=== PATIENT | female | born 2000 | race Hispanic/Latino ===

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

== ENCOUNTER 2019-01-10 19:39 | Emergency (ER) | payer SELFPAY ==
[2019-01-10] MEDS ORDERED: Metoclopramide HCl 10 MG TAB ONE (20:56)
== END 2019-01-10 22:51 | disposition home or self-care (01) ==
LOC: ERS 19:39
DX: O21.9 Vomiting of pregnancy, unspecified (principal); Z3A.01 Less than 8 weeks gestation of pregnancy
CPT/HCPCS: 99283; J8597

== ENCOUNTER 2019-08-12 07:47 | Inpatient (IN) | payer MEDICAID, SELFPAY ==
[2019-08-12] MEDS ORDERED: Promethazine HCl 25 MG/ML VIAL IM PRN ×2 (08:45→13:30)
[2019-08-12] MEDS ORDERED: hydrALAZINE 20 MG/ML VIAL SLOW IVP PRN (08:45)
[2019-08-12] MEDS ORDERED: Acetaminophen 500 MG TAB PO PRN (08:45)
[2019-08-12] MEDS ORDERED: Lidocaine 1% (PF) 30 ML VIAL SC PRN (08:45)
[2019-08-12] MEDS ORDERED: Butorphanol Tartrate 1 MG/ML VIAL SLOW IVP PRN (08:45)
[2019-08-12] MEDS ORDERED: Ondansetron PF 4 MG/2 ML Vial IVP PRN ×2 (08:45→13:30)
[2019-08-12] MEDS ORDERED: NS / Oxytocin 40 units/1000ml 1,000 ML IV PRN (08:45)
--- NOTE | 2019-08-12 09:08 | PDOC.FPRHP ---
- History of Present Illness Chief Complaint: Contractions History of Present Illness: Pt is a 19 yo @ 39.6 wks (FRANDY 08/13) by 11 wk US with anemia of and GERD who presents for contractions. Contractions started @ 3:25 am this morning (08/12). The contractions are every 3-4 minutes. She has no bleeding or loss of fluid. She endorses good movement and has clear vaginal discharge. She says she is only taking PNV. Pre- labs were unremarkable. * Negative Labs: Hep B, GBS, RPR, HIV, Chlamydia, Gonorrhea * Blood Type: A+, Antibody: Negative * Rubella Immune * 3H GTT: 71, 128,138,119 (Negative for GDM) - Allergies/Adverse Reactions Allergies Allergy/AdvReac Type Severity Reaction Status Date / Time Penicillins Allergy Verified 08/12/19 09:07 - Home Medications Medication Instructions Recorded Confirmed Type [id number]/Iron Fum/Folic/Docusate 1 tablet PO DAILY 08/12/19 08/12/19 History [ 19] - History PMHx: Anemia of , GERD PSHx: None FHx: PGM- DM, No jaundice or asthma in family. Social: No alcohol, drugs, or tobacco use. Lives with mom, dad, and 4 siblings. FOB is boyfriend. - Review of Systems General: denies: fever/chills Eyes: denies: vision changes ENT: denies: nasal congestion, rhinorrhea Respiratory: reports: shortness of breath. denies: cough, congestion Cardiovascular: denies: chest pain, edema Gastrointestinal: denies: nausea, vomiting, diarrhea, constipation Genitourinary: denies: dysuria Skin: denies: rashes Musculoskeletal: denies: pain, tenderness Neurological: denies: numbness, weakness - Vital signs BP: 158/95 HR: 79 Pox: 99% on RA Wt: 67.132 kg FMR H&P: A/P - Problem List (1) Term Current Visit: Yes Status: Acute Code(s): Z34.90 - ENCNTR FOR SUPRVSN OF NORMAL , UNSP, UNSP TRIMESTER - Plan Pt is a 19 yo @ 39.6 wks (FRANDY 08/13) by 11 wk US with anemia of and GERD who presents for contractions. 1. Term * Check @ 8:20- 80/-1 * No induction needed at this time * Will check serial BP, due to elevated BP * Will get CMP * Given Tylenol & Stadol prn for pain Diet: NPO with Ice Chips Activity: Ad Sydnie PCP: JG Torres (Laborist) Dispo: Admit to L&D for delivery. FMR H&P: Upper Level - Plan Date/Time: 08/12/19 0905 I, [], have evaluated this patient and agree with findings/plan as outlined by automotive internet sales consultant resident. Pertinent changes/additions are listed here.
[2019-08-12 09:09] VITALS: BMI 27.9
[2019-08-12 09:16] LABS: Hemoglobin 11.8 g/dL (12.0-16.0); Mean Corpuscular HGB CONC 34.4 g/dL (32.0-36.0); Mean Corpuscular Hemoglobin 29.5 pg (25.0-35.0); Mean Corpuscular Volume 85.8 fL (78.0-98.0); Mean Platelet Volume 8.3 fL (7.4-10.4); Platelet Count 230 thou/uL (130-400); RBC Distribution Width 11.9 % (11.5-14.5); Red Blood Cell (RBC) Count 3.99 mill/uL (4.00-5.20)
[2019-08-12] MEDS ORDERED: Butorphanol Tartrate 1 MG/ML VIAL ONE (09:16)
[2019-08-12] MEDS ORDERED: Calcium Gluc 4.6 MEQ/10 ML (100 MG/ML) SLOW IVP PRN (09:27)
[2019-08-12] MEDS: Lactated Ringer's 1,000 ML IV SCH ×2 (09:30→12:50)
[2019-08-12] MEDS ORDERED: Magnesium Sulfate 20 GM/WATER 500 ML BAG IVPB SCH (09:30)
--- NOTE | 2019-08-12 09:42 | HP ---
The patient was evaluated at bedside by me from 9:10 to 9:15. LOCATION: Labor and delivery in [facility] 11. REASON FOR ADMISSION: Active labor at 6 cm. HISTORY OF PRESENT ILLNESS: In brief, this is a 19-year-old G1, P0, who was noted to be 6 cm on initial exam around 8:20 this morning. She is at 39 weeks and 6 days by an 11 week ultrasound. She is a patient of the residents and the residents have done their first assessment. The patient denies any headaches, visual changes, or right upper quadrant discomfort. She has good movement. REVIEW OF SYSTEMS: Complete review of systems was completed and is otherwise negative unless specified in the HPI. PAST MEDICAL HISTORY: Negative. ALLERGIES: NONE. SOCIAL HISTORY: Negative for alcohol, tobacco, or drug use. PAST SURGICAL HISTORY: None. OB HISTORY: She is a primigravida and important to note that she did have a 3- hour glucose tolerance test this and the results were negative. PHYSICAL EXAMINATION: VITAL SIGNS: Show a blood pressure of 158/95, but this was taken during spontaneous contraction. Her pulse is 79 and her O2 saturation is 99%. GENERAL: Clinically, she is in no acute distress, but she is having some contraction discomfort. ABDOMEN: Soft and nontender and size of the uterus is consistent with date. : Again, initial cervical exam shows 6 cm dilation without gross evidence of bleeding. For full cervical exam and details, please turn to the resident H and P. On monitor, I have evaluated the strip and find the heart tracings to be category 1. Contractions are irregular on tocodynamometer with an unclear contraction pattern at this time. ASSESSMENT: This is 19-year-old G1, P0, at 39 weeks and 6 days, GBS negative, in active labor, who was just been admitted. PLAN: 1. Repeat blood pressures and monitor closely. I have recommended a complete metabolic profile to rule out any lab abnormalities. 2. If blood pressures remain over 140 over 90s, consider magnesium sulfate. 3. Pain control. 4. Anticipate spontaneous progress of labor. 5. Pitocin if necessary. 6. Anticipate vaginal . Addendum: Patients repeat BPs still 140/90 20-30 minutes later, Mag ordered. Job ID: [id number] [facility]
[2019-08-12 09:54] LABS: Syphilis Antibody Nonreactive (Nonreactive); Syphilis Antibody Index 0.03 S/CO (<1.00 Non-Reactive)
[2019-08-12] MEDS ORDERED: Magnesium Sulfate 20 gm/500 ml 4 GM/100 ML BAG IVPB SCH (10:00)
[2019-08-12 10:01] LABS: HBSAg Index 0.14 S/CO (0-0.99); Hep B Surf Ag Non-Reactive S/CO (NonReactive)
[2019-08-12] MEDS: Magnesium Sulfate 20 gm/500 ml 20 GM/500 ML BAG IVPB SCH ×2 (10:43→21:14)
[2019-08-12 11:00] LABS: ALT (SGPT) 7 U/L (8-55); AST (SGOT) 17 U/L (5-34); Albumin 3.6 g/dL (3.5-5.0); Alkaline Phosphatase 230 U/L (40-100); Anion Gap 13 mmol/L (10-20); BUN (Urea Nitrogen) 8 mg/dL (7.0-18.7); Bilirubin, Total 0.5 mg/dL (0.2-1.2); Calc. Creatinine Clearance 173 mL/min (70-130); Calcium 9.3 mg/dL (7.8-10.44); Carbon Dioxide 20 mmol/L (22-29); Chloride 109 mmol/L (98-107); Estimated GFR-MDRD Greater than 90; Globulin 3.1 g/dL (2.4-3.5); Glucose 84 mg/dL (70-105); Potassium 3.8 mmol/L (3.5-5.1); Protein, Total 6.7 g/dL (6.0-8.3); Sodium 138 mmol/L (136-145)
[2019-08-12] MEDS ORDERED: Fentanyl 4 mcg/Bup 0.1% Cadd 100 ML ONE (12:05)
[2019-08-12] MEDS ORDERED: Lidocaine 1.5%/Epinephrine 1:200,000 5 ML AMPUL IJ ONE (12:41)
--- NOTE | 2019-08-12 12:44 | PDOC.LDPN ---
Labor & Delivery Progress Note - Subjective Subjective: painful contractions - Objective Vital signs reviewed and normal: yes General: breathing through contractions Uterine fundus: non tender Dilation: 8.5 Effacement: 100% Station: -2 FHT: category 1 (baseline 120, accels present, no decel ), absent or minimal variables [place] contractions every: 2-3 - Assessment (1) Pre-eclampsia affecting childbirth Code(s): O14.94 - UNSPECIFIED PRE-ECLAMPSIA, COMPLICATING CHILDBIRTH Current Visit: Yes Status: Acute (2) Term Code(s): Z34.90 - ENCNTR FOR SUPRVSN OF NORMAL , UNSP, UNSP TRIMESTER Current Visit: Yes Status: Acute Plan: continue plan of care -: active labor - progressing as expected, continue to monitor and check as needed - epidural to be placed for pain control elevated blood pressure - CBC, CMP wnl concern for pre-E - mag running, UOP adequate, pressures under severe range
[2019-08-12] MEDS ORDERED: Lactated Ringer's 500 ML IV PRN (13:30)
[2019-08-12] MEDS ORDERED: Acetaminophen 325 MG TAB PO PRN (13:30)
[2019-08-12] MEDS ORDERED: Fentanyl 4 mcg/Bupivacaine 0.1% Cassette 100 ML EPIDURAL SCH (13:30)
[2019-08-12] MEDS ORDERED: diphenhydrAMINE 50 MG/ML VIAL IVP PRN (13:30)
[2019-08-12] MEDS ORDERED: ePHEDrine/0.9% NaCl/PF SYRINGE 50 mg/10 ml SLOW IVP PRN (13:30)
[2019-08-12] MEDS ORDERED: Communication Order-Pharmacy FS SCH (13:30)
[2019-08-12] MEDS ORDERED: Naloxone HCl 0.4 mg/ml Vial IVP PRN ×2 (13:30)
--- NOTE | 2019-08-12 14:42 | PDOC.LDPN ---
Labor & Delivery Progress Note - Subjective Subjective: comfortable, vaginal pressure - Objective Vital signs reviewed and normal: yes (no severe range pressures) General: NAD, breathing through contractions Uterine fundus: non tender Effacement: 100% Station: -1 FHT: category 1 (baseline 130, accels, no decels ), absent or minimal variables [place] contractions every: 2 - Assessment (1) Pre-eclampsia affecting childbirth Code(s): O14.94 - UNSPECIFIED PRE-ECLAMPSIA, COMPLICATING CHILDBIRTH Current Visit: Yes Status: Acute (2) Term Code(s): Z34.90 - ENCNTR FOR SUPRVSN OF NORMAL , UNSP, UNSP TRIMESTER Current Visit: Yes Status: Acute Plan: continue plan of care -: active labor - SROM/complete @ 1400 - progressing as expected, allow labor down - epidural to be placed for pain control elevated blood pressure - CBC, CMP wnl concern for pre-E - mag running, UOP adequate, pressures under severe range
--- NOTE | 2019-08-12 16:39 | PDOC.EVN ---
Event Note - Event Note Event Note: OBGYN Attending Delivery Note Present for controlled of vigorous male. Baby born at 1617 with resident at perineum. Placenta delivered spont and intact at 1621...[place] EBL about 200ml Guidry placed after placenta to continue MAG No complications noted All counts correct Please see full delivery note
[2019-08-12] MEDS ORDERED: Methylergonovine 0.2 MG/ML VIAL IM PRN (16:45)
[2019-08-12] MEDS ORDERED: Bisacodyl 10 MG SUPP PR PRN (16:45)
[2019-08-12] MEDS ORDERED: Lanolin Ointment 7 GM TUBE TOP PRN (16:45)
[2019-08-12] MEDS ORDERED: Acetaminophen/Codeine 30-300mg Tablet PO PRN (16:45)
[2019-08-12] MEDS ORDERED: Benzocaine-Menthol 82.5 ML CAN TOP PRN (16:45)
[2019-08-12] MEDS ORDERED: NS / Oxytocin 40 units/1000ml 1,000 ML IV SCH (16:45)
[2019-08-12] MEDS ORDERED: Zolpidem Tartrate 5 MG TAB PO PRN (16:45)
[2019-08-12] MEDS ORDERED: Methylergonovine 0.2 MG TAB PO PRN (16:45)
[2019-08-12] MEDS ORDERED: Misoprostol 200 MCG TAB VAG PRN (16:45)
[2019-08-12] MEDS ORDERED: Milk Of Magnesia 30 ML UDCUP PO PRN (16:45)
--- NOTE | 2019-08-12 17:01 | PDOC.OPDEL ---
OB Operative/Delivery Note Delivery Dr/Surgeon: Dr. Chelly Torres MD Assist: None Pre-Delivery Diagnosis: active labor Procedure/Post Delivery Dx: spontaneous vaginal delivery Weeks gestation: 39 (39.6) Anesthesia: epidural - Additional Findings/Plan Placenta delivered: spontaneous Repaired Obstetrical Laceration: none Estimated blood loss: 200mL Compilations/Other Findings: Delivering Physician: Dr. Chelly Torres MD Attending: Dr. Jonathan Rouse MD Procedure: Spontaneous Vaginal Delivery Anesthesia: epidural EBL: 200 ml Pre-op Diagnosis: 1. Term intrauterine in labor 2. Anemia in 3. Elevated blood pressure readings w/o diagnosis of gestation HTN or Pre- eclampsia Post-op Diagnosis: 1. Term intrauterine , delivered 2. Anemia in 3. Elevated blood pressure readings w/o diagnosis of gestation HTN or Pre- eclampsia Indications: A 19y/o female presents in active labor. Delivery Note: This is 19yo F @ 39.6 wks who delivered a viable M at 16:17. Following an uneventful antepartum course, a vigorous male was delivered over an intact perineum in the occipitoanterior position. Anterior Shoulder and then remainder of the body delivered. No nuchal cord. Cord clamped after delayed cord clamping and cut and cord blood collected. Placenta delivered intact in the Carpio presentation with a 3 vessel cord noted. Fundal massage was performed and the fundus was firm. The cervix and vagina were inspected and found to be free of lacerations. Infant went to nursery in good condition for routine care following skin to skin. Apgars were 9/9 at 1 & 5 minutes, respectively. Patient tolerated delivery well and remained on L&D for continued magnesium therapy for elevated blood pressures prior to delivery.
[2019-08-12] MEDS ORDERED: Lidocaine 2% MPF 10 ML AMP (For Epidural Use) ONE (18:00)
--- NOTE | 2019-08-12 19:10 | PDOC.BPN ---
- Brief Progress Note Mag Check S: Doing well, no concerns or complaints. Denies any SOB, CP, confusion, dizziness/lightheadedness. Pain well-controlled. O: Vitals: BP 130-140/60s, no severe range pressures. UOP 50-100cc/hr. General: Well-appearing, lying comfortably in bed, NAD Cards: RRR no murmur Pulm: CTAB, no increased WOB Neuro: A/O x3, upper Ext reflexes 2+ BL Ext: No significant LE edema A/P: 19yo now P1 @39.6wks by 11wk jonas who delivered @ 1614 on 08/12/2019 with complicated by PreE and anemia of . #PreE - On Mg with q4hr mag checks - Normal reflexes, good UOP, no severe range pressures, exam WNL - Will cont to monitor, next mag check @ 2300
[2019-08-12] MEDS: Ibuprofen 800 MG TAB PO SCH (20:21)
[2019-08-12] MEDS: Docusate Calcium (SURFAK) 240 MG CAP PO SCH (21:14)
[2019-08-12] MEDS: Ferrous Sulfate 325 MG TAB PO SCH (21:50)
--- NOTE | 2019-08-12 22:57 | PDOC.BPN ---
- Brief Progress Note Mag Check S: Doing well, no concerns or complaints. Denies any SOB, CP, confusion, dizziness/lightheadedness. Pain well-controlled. Does endorse some mild diaphoresis. O: Vitals: BP 140/70s with most recent 120/90, no severe range pressures. UOP 50cc/hr. General: Well-appearing, lying comfortably in bed, NAD Cards: RRR no murmur Pulm: CTAB, no increased WOB Neuro: A/O x3, upper Ext reflexes 2+ BL Ext: No significant LE edema Guidry in place A/P: 19yo now P1 @39.6wks by 11wk jonas who delivered @ 1614 on 08/12/2019 with complicated by PreE and anemia of . #PreE - On Mg with q4hr mag checks - Normal reflexes, good UOP, no severe range pressures, exam WNL - Readjusted BP cuff as was sliding down arm. - Will cont to monitor, next mag check @ 0300
[2019-08-13] MEDS: Lactated Ringer's 1,000 ML IV SCH (00:01)
--- NOTE | 2019-08-13 03:38 | PDOC.BPN ---
- Brief Progress Note Mag Check S: Pt is doing very well, no concerns or complaints. Denies any SOB, CP, confusion, dizziness/lightheadedness. Pain well-controlled. Diaphoresis resolved. O: Vitals: BP 110s-120s/60s-80s. UOP ~50cc/hr. General: Well-appearing, lying comfortably in bed, NAD Cards: RRR no murmur Pulm: CTAB, no increased WOB Neuro: A/O x3, upper Ext reflexes 2+ BL Ext: No significant LE edema : Guidry in place - clear straw-colored urine A/P: 19yo now P1 @39.6wks by 11wk jonas who delivered @ 1614 on 08/12/2019 with complicated by PreE and anemia of . #PreE - On Mg with q4hr mag checks - Normal reflexes, good UOP, no severe range pressures, exam WNL - BP much improved over last 4 hours. - Mg lv checked and returned 5.3 - Will cont to monitor, next mag check @ 6478
--- NOTE | 2019-08-13 03:55 | PDOC.OBPPN ---
FMR OB PN: Subj - Interval History Hospital Day: 2 Day: 1 Chief Complaint: None Indentification: pp day #1 s/p Interval History: Still receiving Mg for elevated BPs FMR OB PN: Obj - Maternal Vital signs: BP: 127/70 HR: 77 RR: 14 Tmax: 99.4F Pox: 100% on RA Wt: 67 kg - Urine output I&O: 08/11/19 08/12/19 08/13/19 06:59 06:59 06:59 Output Total 280 Balance -280 - Lochia Lochia: scant bloody discharge on pad - Pain Management Pain scale: 0 Intervention: oral medication FMR OB PN: Exam - Physical Exam General: NAD, awake, alert and oriented HEENT: normocephalic and atraumatic, grossly normal vision, grossly normal hearing Neck: supple, FROM Heart: RRR, normal S1/S2, no murmurs/rubs/gallops General: CTAB, no respiratory distress, good air movement, no rales/rhonchi, no wheezing, no retractions Abdomen: soft, fundus(cm) (firm just below umbilicus), non-tender Musculoskeletal: pulses present, FROM in all four extremities Neurological: cranial nerves II through XII intact, sensation to pain,touch and proprioception grossly normal, no focal deficit Skin: no rash : appropriately tender Psychiatric: intact recent and remote memory, good judgement and insight, normal mood and affect - Pelvic Exam : no edema, normal lochia FMR OB PN: Data - Labs Lab results: Laboratory Results - last 24 hr 08/12/19 08/12/19 08/12/19 08:50 08:50 08:50 WBC RBC Hgb Hct MCV MCH MCHC RDW Plt Count MPV Sodium Potassium Chloride Carbon Dioxide Anion Gap BUN Creatinine Estimated GFR (MDRD) Glucose Calcium Magnesium Total Bilirubin AST ALT Alkaline Phosphatase Serum Total Protein Albumin Globulin Albumin/Globulin Ratio Syphilis IgG/IgM Ab Nonreactive Hep Bs Antigen Non-Reactive Blood Type A POSITIVE Antibody Screen NEGATIVE 08/12/19 08/12/19 08/12/19 08:50 10:23 10:23 WBC 15.0 H RBC 3.99 L Hgb 11.8 L Hct 34.2 L MCV 85.8 MCH 29.5 MCHC 34.4 RDW 11.9 Plt Count 230 MPV 8.3 Sodium 138 Potassium 3.8 Chloride 109 H Carbon Dioxide 20 L Anion Gap 13 BUN 8 Creatinine 0.55 L Estimated GFR (MDRD) Greater than 90 Glucose 84 Calcium 9.3 Magnesium Total Bilirubin 0.5 AST 17 ALT 7 L Alkaline Phosphatase 230 H Serum Total Protein 6.7 Albumin 3.6 Globulin 3.1 Albumin/Globulin Ratio 1.2 Syphilis IgG/IgM Ab Hep Bs Antigen Blood Type A POSITIVE Antibody Screen 08/13/19 00:20 WBC RBC Hgb Hct MCV MCH MCHC RDW Plt Count MPV Sodium Potassium Chloride Carbon Dioxide Anion Gap BUN Creatinine Estimated GFR (MDRD) Glucose Calcium Magnesium 5.3 H Total Bilirubin AST ALT Alkaline Phosphatase Serum Total Protein Albumin Globulin Albumin/Globulin Ratio Syphilis IgG/IgM Ab Hep Bs Antigen Blood Type Antibody Screen FMR OB PN: A/P - Problem List (1) Status post normal vaginal delivery Current Visit: Yes Status: Acute Code(s): [id number] - (2) Vaginal delivery Current Visit: Yes Status: Acute Code(s): O80 - ENCOUNTER FOR FULL-TERM UNCOMPLICATED DELIVERY (3) Anemia affecting Current Visit: Yes Status: Acute Code(s): O99.019 - ANEMIA COMPLICATING , UNSPECIFIED TRIMESTER (4) Blood pressure elevated without history of HTN Current Visit: Yes Status: Acute Code(s): R03.0 - ELEVATED BLOOD-PRESSURE READING, W/O DIAGNOSIS OF HTN Disposition: 19YO PP day #1 s/p . PP day #1 s/p : - Reports pain is well-controlled on PO meds. States bleeding is similar to a period. Tolerating PO. No passing gas or BM yet. Not yet ambulating or voiding since godfrey is in & still on Mg. Continue routine PP care. Elevated BP w/o diagnosis of pre-eclampsia or HTN in or outside of : - IV Mg started for seizure PPX yesterday @ ~1500 due to persistently elevated BPs. Highest BP since Mg initiation 144/80 @ ~22:00. UO 140-240mL/hr since last Mg check. - Continue Q4H Mg checks until Mg has been given for ~24 hours and pressures remain well-controlled. - Continue to monitor pressures closely. Anemia in : - Aware, admission H/H 11.8/34.2. Continue PNVs & Iron PP. Dispo: Continue routine PP care with likely d/c home tomorrow morning pending course remains uncomplicated. Discussion: Date/Time: 08/13/19 3094 This H&P was discussed with Dr. Rouse who agrees with the above documentation and plan.
--- NOTE | 2019-08-13 06:29 | PDOC.EVN ---
Event Note - Event Note Event Note: OBGYN Attestation PPD1 MagSo4 Patient PPD1 still on JanuarySo4 but no evidence severe features. Will be 24 hrs on january this pm around 1600. Good UOP. Doing well. Patient seen by me.
--- NOTE | 2019-08-13 07:35 | PDOC.OBPPN ---
FMR OB PN: Subj - Interval History Hospital Day: 2 Day: 1 Chief Complaint: No complaints Interval History: 19 yo F PPD#1 after FMR OB PN: Obj - Maternal Vital signs: BP: 108/62 HR: 83 RR: 16 Tmax: 98 Wt: 67 kg - Urine output I&O: 08/12/19 08/13/19 08/14/19 06:59 06:59 06:59 Output Total 280 Balance -280 - Lochia Lochia: Normal - Pain Management Pain scale: 2 FMR OB PN: Exam - Physical Exam General: NAD, awake, alert and oriented HEENT: normocephalic and atraumatic, PERRLA, EOMI Neck: supple, trachea midline Chest: non-tender to palpation Heart: RRR, normal S1/S2 General: CTAB Abdomen: soft, non-tender, bowel sound present Musculoskeletal: pulses present Neurological: DTR +2 Skin: no rash Lymphatic: no unusual bruising or bleeding FMR OB PN: Data - Labs Lab results: Laboratory Results - last 24 hr 08/12/19 08/12/19 08/12/19 08:50 08:50 08:50 WBC RBC Hgb Hct MCV MCH MCHC RDW Plt Count MPV Sodium Potassium Chloride Carbon Dioxide Anion Gap BUN Creatinine Estimated GFR (MDRD) Glucose Calcium Magnesium Total Bilirubin AST ALT Alkaline Phosphatase Serum Total Protein Albumin Globulin Albumin/Globulin Ratio Syphilis IgG/IgM Ab Nonreactive Hep Bs Antigen Non-Reactive Blood Type A POSITIVE Antibody Screen NEGATIVE 08/12/19 08/12/19 08/12/19 08:50 10:23 10:23 WBC 15.0 H RBC 3.99 L Hgb 11.8 L Hct 34.2 L MCV 85.8 MCH 29.5 MCHC 34.4 RDW 11.9 Plt Count 230 MPV 8.3 Sodium 138 Potassium 3.8 Chloride 109 H Carbon Dioxide 20 L Anion Gap 13 BUN 8 Creatinine 0.55 L Estimated GFR (MDRD) Greater than 90 Glucose 84 Calcium 9.3 Magnesium Total Bilirubin 0.5 AST 17 ALT 7 L Alkaline Phosphatase 230 H Serum Total Protein 6.7 Albumin 3.6 Globulin 3.1 Albumin/Globulin Ratio 1.2 Syphilis IgG/IgM Ab Hep Bs Antigen Blood Type A POSITIVE Antibody Screen 08/13/19 00:20 WBC RBC Hgb Hct MCV MCH MCHC RDW Plt Count MPV Sodium Potassium Chloride Carbon Dioxide Anion Gap BUN Creatinine Estimated GFR (MDRD) Glucose Calcium Magnesium 5.3 H Total Bilirubin AST ALT Alkaline Phosphatase Serum Total Protein Albumin Globulin Albumin/Globulin Ratio Syphilis IgG/IgM Ab Hep Bs Antigen Blood Type Antibody Screen FMR OB PN: A/P - Problem List (1) Term Current Visit: Yes Status: Acute Code(s): Z34.90 - ENCNTR FOR SUPRVSN OF NORMAL , UNSP, UNSP TRIMESTER (2) Pre-eclampsia affecting childbirth Current Visit: Yes Status: Acute Code(s): O14.94 - UNSPECIFIED PRE-ECLAMPSIA , COMPLICATING CHILDBIRTH (3) Status post normal vaginal delivery Current Visit: Yes Status: Acute Code(s): [id number] - Disposition: 19YO PP day #1 s/p . 1. PP day #1 s/p : * Reports pain is well-controlled on PO meds. * Bleeding is similar to a period. * Tolerating PO. * No passing gas or BM yet. * Not yet ambulating or voiding since godfrey is in & still on Mg. * Continue routine PP care. 2. Elevated BP w/o diagnosis of pre-eclampsia or HTN in or outside of : * IV Mg started for seizure PPX yesterday @ ~1500 due to persistently elevated BPs. * Highest BP since Mg initiation 144/80 last night. UO 170 mL in last hour. * Continue Q4H Mg checks until Mg has been given for ~24 hours and pressures remain well-controlled. * Continue to monitor pressures closely. 3. Anemia in : * Aware, admission H/H 11.8.2. Continue PNVs & Iron PP. Dispo: Continue routine PP care with likely d/c home tomorrow morning pending course remains uncomplicated. Will continue Mag until this afternoon. Discussed with Dr. Rouse Discussion: Date/Time: 08/13/19 3910 This H&P was discussed with [] and [] who agree with the above documentation and plan.
[2019-08-13] MEDS: Ferrous Sulfate 325 MG TAB PO SCH ×2 (08:00→19:19)
[2019-08-13] MEDS: Magnesium Sulfate 20 gm/500 ml 20 GM/500 ML BAG IVPB SCH (08:41)
[2019-08-13] MEDS ORDERED: FLU VACC QS2019-20(6MOS UP)/PF 60 MCG/0.5 ML SYRINGE IM ONE (09:00)
[2019-08-13] MEDS: Docusate Calcium (SURFAK) 240 MG CAP PO SCH ×2 (09:00→21:48)
--- NOTE | 2019-08-13 12:53 | PDOC.BPN ---
- Brief Progress Note Mag Check S: Pt is doing very well. She says she has a slight headache. Denies any SOB, CP , confusion, dizziness/lightheadedness. Pain well-controlled. O: Vitals: BP 114/64. UOP ~200cc/hr. General: Well-appearing, lying comfortably in bed, NAD Cards: RRR no murmur Pulm: CTAB, no increased WOB Neuro: A/O x3, upper Ext reflexes 2+ BL Ext: No significant LE edema : Guidry in place - clear straw-colored urine A/P: 19yo now P1 @39.6wks by 11wk jonas who delivered @ 1614 on 08/12/2019 with complicated by PreE and anemia of . 1. PreE * On Mg with q4hr mag checks * Normal reflexes, good UOP, no severe range pressures, exam WNL * BP have been good today * Will cont to monitor, next mag check @ 4 * Mag 24H @ 1500
[2019-08-13] MEDS: Ibuprofen 800 MG TAB PO SCH ×3 (14:03→21:48)
[2019-08-13] MEDS: Prenatal Vitamin 1 TAB PO SCH (14:03)
--- NOTE | 2019-08-14 04:00 | PDOC.OBPPN ---
FMR OB PN: Subj - Interval History Hospital Day: 3 Day: 2 Chief Complaint: none Indentification: pp day #2 s/p Interval History: Mg stopped @ 13:00 on 08/13. 1 elevated BP since of 144/95. FMR OB PN: Obj - Maternal Vital signs: BP: 131/71 HR: 80 RR: 18 Tmax: 98.2F Pox: 97% on RA Wt: 67 kg - Urine output I&O: 08/12/19 08/13/19 08/14/19 06:59 06:59 06:59 Output Total 280 Balance -280 - Lochia Lochia: minimal bleeding per patient - Pain Management Pain scale: 0 Intervention: oral medication FMR OB PN: Exam - Physical Exam General: NAD, awake, alert and oriented HEENT: normocephalic and atraumatic, grossly normal vision, grossly normal hearing Neck: supple, FROM Heart: RRR, normal S1/S2, no murmurs/rubs/gallops, pulses present, no edema General: CTAB, no respiratory distress, good air movement, no rales/rhonchi, no wheezing Abdomen: soft, fundus(cm) (firm & midline just below umbilicus) Musculoskeletal: normal gait and station, FROM in all four extremities Neurological: cranial nerves II through XII intact, sensation to pain,touch and proprioception grossly normal, no focal deficit Psychiatric: intact recent and remote memory, normal mood and affect - Pelvic Exam : no discharge, no edema, normal lochia FMR OB PN: A/P - Problem List (1) Status post normal vaginal delivery Current Visit: Yes Status: Acute Code(s): FEX5253 - (2) Vaginal delivery Current Visit: Yes Status: Acute Code(s): O80 - ENCOUNTER FOR FULL-TERM UNCOMPLICATED DELIVERY (3) Anemia affecting Current Visit: Yes Status: Acute Code(s): O99.019 - ANEMIA COMPLICATING , UNSPECIFIED TRIMESTER (4) Blood pressure elevated without history of HTN Current Visit: Yes Status: Acute Code(s): R03.0 - ELEVATED BLOOD-PRESSURE READING, W/O DIAGNOSIS OF HTN Disposition: 19YO PP day #2 s/p . 1. PP day #2 s/p : * Reports pain is well-controlled on PO meds. * Bleeding is less than a period. * Tolerating PO. Passing gas but no BM yet. Voiding normally. * is improving. * Continue routine PP care. 2. Elevated BP w/o diagnosis of pre-eclampsia or HTN in or outside of : * IV Mg started for seizure PPX on 08/12 @ ~1500 due to persistently elevated BPs. Stopped yesterday @ ~13:00. * Only 1 elevated BP since @ ~20:23 @ 144/95. Patient remains asymptomatic. * Continue to monitor pressures closely. 3. Anemia in : * Aware, admission H/H .2. Continue PNVs & Iron PP. Dispo: Possible d/c home later today pending BPs remain stable and 's course remains uneventful. Discussion: Date/Time: 08/14/19 0358 This H&P was discussed with Dr. Grider who agrees with the above documentation and plan.
[2019-08-14] MEDS: Ibuprofen 800 MG TAB PO SCH ×2 (06:12→14:32)
[2019-08-14] MEDS ORDERED: [UNRECOGNIZED DRUG - OTHER] PO SCH (09:00)
[2019-08-14] MEDS ORDERED: DOCUSATE PO SCH (09:00)
[2019-08-14] MEDS ORDERED: IRON FUM PO SCH (09:00)
[2019-08-14] MEDS ORDERED: Adacel (T-DAP) 0.5 ML SYRINGE IM ONE (09:00)
[2019-08-14] MEDS ORDERED: FOLIC PO SCH (09:00)
[2019-08-14] MEDS: Ferrous Sulfate 325 MG TAB PO SCH (09:27)
[2019-08-14] MEDS: Docusate Calcium (SURFAK) 240 MG CAP PO SCH (09:27)
[2019-08-14] MEDS: Prenatal Vitamin 1 TAB PO SCH (09:27)
[2019-08-14] MEDS ORDERED: Labetalol 100 MG TAB PO SCH ×2 (12:15→21:00)
[2019-08-14 16:27] VITALS: BP 135/84; TEMP 98.4
== END 2019-08-14 17:45 | disposition home or self-care (01) | DRG 807 ==
LOC: L&D/OP 07:47 → L&D 13:55 → 3SW 08-13 15:26
PROVIDERS: ADMIT Obstetrics & Gynecology; ATTEND Obstetrics & Gynecology
PROC: 10E0XZZ Delivery of Products of Conception, External Approach (ICD-10-PCS; principal; 2019-08-12)
DX: O99.02 Anemia complicating childbirth (principal); Z37.0 Single live birth; Z3A.39 39 weeks gestation of pregnancy; O14.94 Unspecified pre-eclampsia, complicating childbirth; D64.9 Anemia, unspecified
CPT/HCPCS: 36415; 80053; 83735; 85027; 86780; 86850; 86900; 86901; 87340; J0595; J2001; J3475; J3490

== ENCOUNTER 2019-09-24 17:17 | Emergency (ER) | payer MEDICAID, SELFPAY ==
[2019-09-24 19:57] LABS: Bacteria/HPF None Seen HPF (None Seen); Bilirubin Negative (Negative); Blood, Urine Negative (Negative); Clarity Clear (Clear); Glucose, Urine (Dipstick) Normal (Negative); Leukocyte 250 Leu/uL (Negative); Mucous/LPF Rare LPF (<2+); Nitrite Negative (Negative); Protein, Urine (Dipstick) Negative (Neg-Trace); RBC/HPF 0-3 HPF (0-3); Squamous Epithelial 0-3 HPF (0-3); Urobilinogen Normal mg/dL (Less than 2); WBC/HPF 0-3 HPF (0-3)
[2019-09-24 19:58] LABS: #Monocytes 0.6 thou/uL (0.11-0.59); #Neutrophils 6.3 thou/uL (1.40-6.50); %Basophils 0.1 % (0.0-1.0); %Eosinophils 0.4 % (0.0-10.0); %Lymphocytes 22.4 % (28.0-48.0); %Monocytes 7.1 % (0.0-4.0); Hemoglobin 13.2 g/dL (12.0-16.0); Mean Corpuscular HGB CONC 34.5 g/dL (32.0-36.0); Mean Corpuscular Hemoglobin 29.2 pg (25.0-35.0); Mean Corpuscular Volume 84.6 fL (78.0-98.0); Mean Platelet Volume 6.8 fL (7.4-10.4); Platelet Count 279 thou/uL (130-400); RBC Distribution Width 11.5 % (11.5-14.5); Red Blood Cell (RBC) Count 4.52 mill/uL (4.00-5.20); White Blood Cell (WBC) Count 8.9 thou/uL (4.8-10.8)
[2019-09-24 20:21] LABS: ALT (SGPT) 11 U/L (8-55); AST (SGOT) 17 U/L (5-34); Albumin 4.9 g/dL (3.5-5.0); Alkaline Phosphatase 100 U/L (40-100); Anion Gap 16 mmol/L (10-20); BUN (Urea Nitrogen) 9 mg/dL (7.0-18.7); Bilirubin, Total 0.9 mg/dL (0.2-1.2); Calc. Creatinine Clearance 0 mL/min (70-130); Calcium 9.6 mg/dL (7.8-10.44); Carbon Dioxide 23 mmol/L (22-29); Chloride 103 mmol/L (98-107); Estimated GFR-MDRD Greater than 90; Globulin 2.9 g/dL (2.4-3.5); Glucose 84 mg/dL (70-105); Potassium 3.6 mmol/L (3.5-5.1); Protein, Total 7.8 g/dL (6.0-8.3); Sodium 138 mmol/L (136-145); Uric Acid 6.4 mg/dL (2.6-6.0)
== END 2019-09-24 20:47 | disposition home or self-care (01) ==
LOC: ERS 17:17
DX: O99.89 Other specified diseases and conditions complicating pregnancy, childbirth and the puerperium (principal); R07.89 Other chest pain
CPT/HCPCS: 36415; 80053; 81003; 81015; 84484; 84550; 85025; 93005

== ENCOUNTER 2020-05-25 15:44 | Emergency (ER) | payer SELFPAY ==
[2020-05-26 13:24] LABS: SARS-CoV-2 MS2 Positive; SARS-CoV-2 N Gene Negative; SARS-CoV-2 S Gene Negative; SARS-CoV-2 by NAA Not Detected (NotDetected); SARS-CoV-2 orf1ab Negative
== END 2020-05-25 16:45 | disposition home or self-care (01) ==
LOC: ERS 15:44
DX: R05 Cough (principal); R09.89 Other specified symptoms and signs involving the circulatory and respiratory systems; J02.9 Acute pharyngitis, unspecified; R52 Pain, unspecified; Z20.828 Contact with and (suspected) exposure to other viral communicable diseases
CPT/HCPCS: 87635; 99283; U0003

== ENCOUNTER 2020-09-02 18:44 | Emergency (ER) | payer SELFPAY ==
[2020-09-02] MEDS ORDERED: Ibuprofen 800 MG TAB ONE (18:55)
[2020-09-02] MEDS ORDERED: Acetaminophen 500 MG TAB ONE (18:55)
[2020-09-02] MEDS ORDERED: Ondansetron PF 4 MG/2 ML Vial ONE (19:28)
[2020-09-02 19:43] LABS: #Lymphocytes 1.3 thou/uL (1.20-3.40); #Monocytes 1.1 thou/uL (0.11-0.59); #Neutrophils 11.5 thou/uL (1.40-6.50); %Basophils 0.3 % (0.0-1.0); %Eosinophils 0.1 % (0.0-10.0); %Lymphocytes 9.6 % (21.0-51.0); %Monocytes 7.9 % (0.0-10.0); %Neutrophils 82.1 % (42.0-75.0); Hemoglobin 13.2 g/dL (12.0-16.0); Mean Corpuscular HGB CONC 35.4 g/dL (32.0-36.0); Mean Corpuscular Hemoglobin 29.8 pg (27.0-31.0); Mean Corpuscular Volume 84.3 fL (78.0-98.0); Mean Platelet Volume 6.9 fL (7.4-10.4); Platelet Count 231 thou/uL (130-400); RBC Distribution Width 11.6 % (11.5-14.5); Red Blood Cell (RBC) Count 4.41 mill/uL (4.20-5.40)
[2020-09-02 19:55] LABS: Bacteria/HPF None Seen HPF (None Seen); Bilirubin Negative (Negative); Blood, Urine Negative (Negative); Clarity Clear (Clear); Glucose, Urine (Dipstick) Normal (Negative); Ketone, Urine Negative (Negative); Leukocyte 75 Leu/uL (Negative); Nitrite Negative (Negative); Protein, Urine (Dipstick) 20 mg/dL (Neg-Trace); RBC/HPF 0-3 HPF (0-3); Specific Gravity, Urine 1.019 (1.002-1.036); Urobilinogen Normal mg/dL (Less than 2); WBC/HPF 0-3 HPF (0-3); pH, Urine 6.5 (5.0-9.0)
[2020-09-02 20:05] LABS: ALT (SGPT) 14 U/L (8-55); AST (SGOT) 15 U/L (5-34); Albumin 4.5 g/dL (3.5-5.0); Alkaline Phosphatase 68 U/L (40-110); Anion Gap 12 mmol/L (10-20); BUN (Urea Nitrogen) 8 mg/dL (7.0-18.7); Bilirubin, Total 0.5 mg/dL (0.2-1.2); Calc. Creatinine Clearance 0 mL/min (70-130); Calcium 9.4 mg/dL (7.8-10.44); Carbon Dioxide 26 mmol/L (22-29); Chloride 99 mmol/L (98-107); Globulin 3.2 g/dL (2.4-3.5); Glucose 125 mg/dL (70-105); Potassium 3.4 mmol/L (3.5-5.1); Protein, Total 7.7 g/dL (6.0-8.3); Sodium 134 mmol/L (136-145)
[2020-09-02 20:06] LABS: BHCG - Serum Negative (NEGATIVE); Pregs Control Background? CLEAR/WHITE (CLR/WHITE); Pregs Control Bar Appear? YES (CONTROL BAR)
== END 2020-09-02 22:41 | disposition home or self-care (01) ==
LOC: ERS 18:44
DX: R11.2 Nausea with vomiting, unspecified (principal); R50.9 Fever, unspecified; Z20.828 Contact with and (suspected) exposure to other viral communicable diseases
CPT/HCPCS: 36415; 80053; 81003; 81015; 83605; 84703; 85025; 87040; 87804; 96374; J2405

== ENCOUNTER 2020-12-29 13:58 | Emergency (ER) | payer SELFPAY ==
[2020-12-29] MEDS ORDERED: Ondansetron PF 4 MG/2 ML Vial ONE (14:36)
[2020-12-29 14:54] LABS: #Basophils 0.1 thou/uL (0.0-0.2); #Lymphocytes 1.6 thou/uL (1.20-3.40); #Monocytes 0.7 thou/uL (0.11-0.59); %Basophils 0.5 % (0.0-1.0); %Eosinophils 0.1 % (0.0-10.0); %Lymphocytes 12.1 % (21.0-51.0); %Monocytes 5.1 % (0.0-10.0); %Neutrophils 82.2 % (42.0-75.0); Hemoglobin 14.2 g/dL (12.0-16.0); Mean Corpuscular HGB CONC 34.5 g/dL (32.0-36.0); Mean Corpuscular Hemoglobin 29.4 pg (27.0-31.0); Mean Corpuscular Volume 85.3 fL (78.0-98.0); Mean Platelet Volume 6.9 fL (7.4-10.4); Platelet Count 319 thou/uL (130-400); RBC Distribution Width 11.1 % (11.5-14.5); Red Blood Cell (RBC) Count 4.81 mill/uL (4.20-5.40); White Blood Cell (WBC) Count 13.3 thou/uL (4.8-10.8)
[2020-12-29 15:00] LABS: ALT (SGPT) 11 U/L (8-55); AST (SGOT) 15 U/L (5-34); Albumin 4.8 g/dL (3.5-5.0); Alkaline Phosphatase 66 U/L (40-110); Anion Gap 16 mmol/L (10-20); BUN (Urea Nitrogen) 11 mg/dL (7.0-18.7); Bilirubin, Total 0.6 mg/dL (0.2-1.2); Calc. Creatinine Clearance 0 mL/min (70-130); Calcium 9.3 mg/dL (7.8-10.44); Carbon Dioxide 19 mmol/L (22-29); Chloride 102 mmol/L (98-107); Globulin 3.3 g/dL (2.4-3.5); Glucose 102 mg/dL (70-105); Lipase 40 U/L (8-78); Potassium 3.7 mmol/L (3.5-5.1); Protein, Total 8.1 g/dL (6.0-8.3); Sodium 133 mmol/L (136-145)
[2020-12-29 15:42] LABS: Pregnancy Test - Urine (BHCG) POSITIVE (Negative); Pregu Control Background? CLEAR/WHITE (CLR/WHITE); Pregu Control Bar Appear? YES (CONTROL BAR); Specific Gravity 1.043 (1.002-1.036)
[2020-12-29 15:43] LABS: Bacteria/HPF None Seen HPF (None Seen); Bilirubin Negative (Negative); Blood, Urine Negative (Negative); Clarity Clear (Clear); Glucose, Urine (Dipstick) Normal (Negative); Ketone, Urine Greater than 150 mg/dL (Negative); Leukocyte 25 Leu/uL (Negative); Nitrite Negative (Negative); Protein, Urine (Dipstick) 100 mg/dL (Neg-Trace); RBC/HPF 0-3 HPF (0-3); Specific Gravity, Urine 1.043 (1.002-1.036); Squamous Epithelial 0-3 HPF (0-3); WBC/HPF 0-3 HPF (0-3); pH, Urine 6.5 (5.0-9.0)
== END 2020-12-29 16:36 | disposition home or self-care (01) ==
LOC: ERS 13:58
DX: O21.9 Vomiting of pregnancy, unspecified (principal); Z3A.01 Less than 8 weeks gestation of pregnancy
CPT/HCPCS: 36415; 80053; 81003; 81015; 81025; 83690; 85025; 96374; J2405

== ENCOUNTER 2021-03-22 09:04 | Outpatient (CLI) | payer OTHER | END 2021-03-22 09:05 | disposition home or self-care (01) | LOC: BICULT 09:04 | PROVIDERS: ATTEND Nurse Practitioner | DX: O26.842 Uterine size-date discrepancy, second trimester (principal); O44.42 Low lying placenta NOS or without hemorrhage, second trimester; Z3A.20 20 weeks gestation of pregnancy | CPT/HCPCS: 76805 ==

== ENCOUNTER 2021-11-23 23:07 | Emergency (ER) | payer MEDICAID, SELFPAY ==
[2021-11-23] MEDS ORDERED: Ketorolac Tromethamine 30 MG/ML VIAL ONE (23:38)
== END 2021-11-23 23:51 | disposition home or self-care (01) ==
LOC: ERS 23:07
DX: R07.9 Chest pain, unspecified (principal)
CPT/HCPCS: 71045; 93005; 96372; J1885

== ENCOUNTER 2022-03-22 02:42 | Emergency (ER) | payer MEDICAID, SELFPAY ==
[2022-03-22 03:12] LABS: #Basophils 0.1 thou/uL (0.0-0.2); #Eosinphils 0.2 thou/uL (0.0-0.7); #Lymphocytes 2.7 thou/uL (1.20-3.40); #Monocytes 0.9 thou/uL (0.11-0.59); #Neutrophils 5.3 thou/uL (1.40-6.50); %Basophils 0.7 % (0.0-1.0); %Eosinophils 2.7 % (0.0-10.0); %Lymphocytes 29.3 % (21.0-51.0); %Monocytes 9.6 % (0.0-10.0); %Neutrophils 57.8 % (42.0-75.0); Hemoglobin 13.4 g/dL (12.0-16.0); Mean Corpuscular HGB CONC 34.2 g/dL (32.0-36.0); Mean Corpuscular Hemoglobin 30.2 pg (27.0-31.0); Mean Corpuscular Volume 88.2 fL (78.0-98.0); Platelet Count 284 thou/uL (130-400); Red Blood Cell (RBC) Count 4.45 mill/uL (4.20-5.40); White Blood Cell (WBC) Count 9.1 thou/uL (4.8-10.8)
[2022-03-22 03:33] LABS: ALT (SGPT) 33 U/L (8-55); AST (SGOT) 24 U/L (5-34); Albumin 4.4 g/dL (3.5-5.0); Alkaline Phosphatase 75 U/L (40-110); Anion Gap 13 mmol/L (10-20); BUN (Urea Nitrogen) 13 mg/dL (7.0-18.7); Bilirubin, Total 0.4 mg/dL (0.2-1.2); Calc. Creatinine Clearance 0 mL/min (70-130); Calcium 9.8 mg/dL (7.8-10.44); Carbon Dioxide 27 mmol/L (22-29); Chloride 103 mmol/L (98-107); Glucose 108 mg/dL (70-105); Lipase 43 U/L (8-78); Potassium 3.8 mmol/L (3.5-5.1); Protein, Total 7.4 g/dL (6.0-8.3); Sodium 139 mmol/L (136-145)
[2022-03-22 04:00] LABS: Bacteria/HPF None Seen HPF (None Seen); Bilirubin Negative (Negative); Blood, Urine Negative (Negative); Clarity Clear (Clear); Glucose, Urine (Dipstick) Normal (Negative); Ketone, Urine Negative (Negative); Leukocyte 250 Leu/uL (Negative); Mucous/LPF Rare LPF (<2+); Nitrite Negative (Negative); Protein, Urine (Dipstick) 20 mg/dL (Neg-Trace); RBC/HPF 0-3 HPF (0-3); Specific Gravity, Urine 1.033 (1.002-1.036); Urobilinogen Normal mg/dL (Less than 2); pH, Urine 6.5 (5.0-9.0)
[2022-03-22 04:03] LABS: Pregnancy Test - Urine (BHCG) Negative (Negative); Pregu Control Background? CLEAR/WHITE (CLR/WHITE); Pregu Control Bar Appear? YES (CONTROL BAR); Specific Gravity 1.033 (1.002-1.036)
== END 2022-03-22 05:23 | disposition home or self-care (01) ==
LOC: ERS 02:42
DX: K80.20 Calculus of gallbladder without cholecystitis without obstruction (principal)
CPT/HCPCS: 36415; 76705; 80053; 81003; 81015; 81025; 83690; 85025

== ENCOUNTER 2023-07-11 10:13 | Emergency (ER) | payer SELFPAY ==
[2023-07-11] MEDS ORDERED: Ondansetron PF 4 MG/2 ML Vial ONE (10:42)
[2023-07-11] MEDS ORDERED: Ketorolac Tromethamine 30 MG/ML VIAL ONE (10:42)
[2023-07-11 10:54] LABS: #Eosinphils 0.1 thou/uL (0.0-0.7); #Monocytes 0.5 thou/uL (0.11-0.59); #Neutrophils 4.2 thou/uL (1.40-6.50); %Basophils 0.6 % (0.0-1.0); %Eosinophils 1.6 % (0.0-10.0); %Lymphocytes 21.3 % (21.0-51.0); %Monocytes 8.8 % (0.0-10.0); %Neutrophils 67.4 % (42.0-75.0); Hematocrit 39.6 % (36.0-47.0); Hemoglobin 13.4 g/dL (12.0-16.0); Mean Corpuscular HGB CONC 33.8 g/dL (32.0-36.0); Mean Corpuscular Volume 85.7 fl (78.0-98.0); Platelet Count 278 10x3/uL (130-400); RBC Distribution Width 11.9 % (11.5-14.5); Red Blood Cell (RBC) Count 4.62 mill/uL (4.20-5.40); White Blood Cell (WBC) Count 6.2 10x3/uL (4.8-10.8)
[2023-07-11 11:03] LABS: BHCG - Serum Negative (NEGATIVE); Pregs Control Background? CLEAR/WHITE (CLR/WHITE); Pregs Control Bar Appear? YES (CONTROL BAR)
[2023-07-11 11:25] LABS: Bacteria/HPF None Seen HPF (None Seen); Bilirubin Negative (Negative); Blood, Urine Negative (Negative); CAUTI Indications for Culture Dysuria,urgency,freq; Clarity Clear (Clear); Glucose, Urine (Dipstick) Normal (Negative); Ketone, Urine Negative (Negative); Leukocyte Negative Leu/uL (Negative); Nitrite Negative (Negative); Pregnancy Test - Urine (BHCG) Negative (Negative); Pregu Control Background? CLEAR/WHITE (CLR/WHITE); Pregu Control Bar Appear? YES (CONTROL BAR); Protein, Urine (Dipstick) Negative (Neg-Trace); RBC/HPF 0-3 HPF (0-3); Specific Gravity 1.011 (1.002-1.036); Specific Gravity, Urine 1.011 (1.002-1.036); Squamous Epithelial 0-3 HPF (0-3); Urobilinogen Normal mg/dL (Less than 2); WBC/HPF 0-3 HPF (0-3); pH, Urine 6.5 (5.0-9.0)
[2023-07-11 11:26] LABS: Urine Culture Reflex No No
[2023-07-11 11:36] LABS: ALT (SGPT) 36 U/L (8-55); AST (SGOT) 24 U/L (5-34); Alkaline Phosphatase 79 U/L (40-110); Anion Gap 11 mmol/L (10-20); BUN (Urea Nitrogen) 9 mg/dL (7.0-18.7); Bilirubin, Total 0.4 mg/dL (0.2-1.2); Calc. Creatinine Clearance 0 mL/min (70-130); Calcium 9.6 mg/dL (7.8-10.44); Carbon Dioxide 26 mmol/L (22-29); Chloride 104 mmol/L (98-107); Estimated GFR 126; Globulin 2.7 g/dL (2.4-3.5); Glucose 96 mg/dL (70-105); Potassium 3.8 mmol/L (3.5-5.1); Protein, Total 7.7 g/dL (6.0-8.3); Sodium 137 mmol/L (136-145)
== END 2023-07-11 12:45 | disposition home or self-care (01) ==
LOC: ERS 10:13
DX: H81.11 Benign paroxysmal vertigo, right ear (principal); E86.0 Dehydration
CPT/HCPCS: 70450; 80053; 81001; 81025; 84703; 85025; 96361; 96374; 96375; J1885; J2405

== ENCOUNTER 2024-11-12 08:49 | Emergency (ER) | payer SELFPAY ==
[2024-11-12 09:17] LABS: #Basophils 0.04 10x3/uL (0.0-0.2); %Basophils 0.5 % (0.0-1.0); %Eosinophils 0.6 % (0.0-10.0); %Lymphocytes 18.9 % (21.0-51.0); %Monocytes 7.7 % (0.0-10.0); %Neutrophils 72.1 % (42.0-75.0); Mean Corpuscular HGB CONC 34.2 g/dL (32.0-36.0); Mean Corpuscular Hemoglobin 29.1 pg (27.0-31.0); Mean Corpuscular Volume 85.2 fL (78.0-98.0); Mean Platelet Volume 9.2 fL (7.4-10.4); Platelet Count 247 10x3/uL (130-400); RBC Distribution Width 11.8 % (11.5-14.5); Red Blood Cell (RBC) Count 4.46 mill/uL (4.20-5.40)
[2024-11-12 09:33] LABS: BHCG - Serum POSITIVE (NEGATIVE); Pregs Control Background? CLEAR/WHITE (CLR/WHITE); Pregs Control Bar Appear? YES (CONTROL BAR)
[2024-11-12 09:40] LABS: ALT (SGPT) 10 U/L (Less than 34); AST (SGOT) 20 U/L (11-34); Albumin 3.8 g/dL (3.1-4.5); Alkaline Phosphatase 44 U/L (40-110); Anion Gap 13 mmol/L (10-20); BUN (Urea Nitrogen) 6 mg/dL (7.0-18.7); Bilirubin, Total 0.6 mg/dL (0.3-1.2); Calc. Creatinine Clearance 0 mL/min (70-130); Carbon Dioxide 21 mmol/L (22-29); Chloride 106 mmol/L (98-107); Estimated GFR 135; Globulin 3.3 g/dL (2.4-3.5); Glucose 87 mg/dL (70-105); Potassium 3.9 mmol/L (3.5-5.1); Protein, Total 7.1 g/dL (6.0-8.3); Sodium 136 mmol/L (136-145)
[2024-11-12 09:41] LABS: Bacteria/HPF None Seen HPF (None Seen); Bilirubin Negative (Negative); Blood, Urine Negative (Negative); CAUTI Indications for Culture Pelvic or flank pain; Clarity Clear (Clear); Glucose, Urine (Dipstick) Normal (Negative); Ketone, Urine Negative (Negative); Leukocyte 250 Leu/uL (Negative); Nitrite Negative (Negative); Protein, Urine (Dipstick) Negative (Neg-Trace); RBC/HPF 0-3 HPF (0-3); Specific Gravity, Urine 1.025 (1.002-1.036); Urine Culture Reflex No No; Urobilinogen Normal mg/dL (Less than 2)
[2024-11-13 01:03] LABS: Chlamydia by PCR, Vaginal Swab Not Detected (NotDetected); GC by PCR, Vaginal Swab Not Detected (NotDetected)
== END 2024-11-12 11:50 | disposition home or self-care (01) ==
LOC: ERS 08:49
DX: O23.591 Infection of other part of genital tract in pregnancy, first trimester (principal); B96.89 Other specified bacterial agents as the cause of diseases classified elsewhere; O99.891 Other specified diseases and conditions complicating pregnancy; N85.6 Intrauterine synechiae; Z3A.10 10 weeks gestation of pregnancy
CPT/HCPCS: 36415; 76801; 80053; 81001; 84702; 84703; 85025; 87480; 87491; 87510; 87591; 87660

== ENCOUNTER 2025-07-20 17:34 | Emergency (ER) | payer MEDICAID, SELFPAY ==
[2025-07-20] MEDS ORDERED: predniSONE 20 MG TAB ONE (18:24)
== END 2025-07-20 20:08 | disposition home or self-care (01) ==
LOC: ERS 17:34
DX: B34.9 Viral infection, unspecified (principal)
CPT/HCPCS: 87081; 87428; 87430; 99282; J7512